=== PATIENT | male | born 1985 ===

== ENCOUNTER 2017-03-04 23:53 | Emergency (ER) | payer SELFPAY ==
[2017-03-04 23:59] VITALS: BP 126/86; RESP 18; TEMP 99; O2SAT 98
[2017-03-05] MEDS ORDERED: Lidocaine 1% (10 ml) Inj INFIL STA (00:16)
[2017-03-05] MEDS ORDERED: Lidocaine 1% Inj (20ml) ONE (00:19)
[2017-03-05 01:46] VITALS: PULSE 93
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
== END 2017-03-05 01:59 | disposition home or self-care (01) ==
LOC: H.ER 23:53
DX: S09.90XA Unspecified injury of head, initial encounter (principal); S09.92XA Unspecified injury of nose, initial encounter; Y04.0XXA Assault by unarmed brawl or fight, initial encounter; Y92.89 Other specified places as the place of occurrence of the external cause